=== PATIENT | male | born 1960 | race Caucasian/White ===

== ENCOUNTER 2020-08-24 12:17 | Inpatient (IN) | payer OTHER ==
[~2020-08-24] VITALS: Ht 180.3 cm; Wt 81.6 kg
[2020-08-24 12:19] VITALS: BP 172/96
[2020-08-24 12:33] LABS: ABSOLUTE BASOPHILS 0.1 thou/uL (0.0-0.2); ABSOLUTE EOSINOPHILS 0.3 thou/uL (0.0-0.7); ABSOLUTE LYMPHOCYTES 5.1 thou/uL (0.8-5.3); ABSOLUTE MONOCYTES 0.6 thou/uL (0.0-1.2); ABSOLUTE NEUTROPHILS 4.1 thou/uL (1.6-8.1); EOSINOPHILS 3.4 %; HEMATOCRIT 41.3 % (42.0-52.0); HEMOGLOBIN 14.6 gm/dL (14.0-18.0); LYMPHOCYTES 49.4 %; MCH 30.7 pg (26.0-34.0); MCHC 35.3 g/dL (28.0-37.0); MONOCYTES 5.9 %; MPV 8.1 fl. (7.2-11.1); NUCLEATED RBCS 0 /100WBC; PLATELET COUNT* 222 thou/uL (150-400); POLYS 40.3 %; RBC 4.75 mil/uL (4.50-6.00); RDW-CV 13.7 % (10.5-14.5); WBC 10.2 thou/uL (4.0-11.0)
[2020-08-24 12:42] LABS: CALCIUM 8.7 mg/dL (8.5-10.1); CREATININE 1.2 mg/dL (0.6-1.3); POTASSIUM 4.2 mmol/L (3.5-5.1)
[2020-08-24 12:46] LABS: ALBUMIN 4.2 g/dL (3.4-5.0); TOTAL BILIRUBIN 0.4 mg/dL (<0.1-1.0); TOTAL PROTEIN 7.6 g/dL (6.4-8.2)
[2020-08-24 16:00] VITALS: BP 149/77
[2020-08-24 16:10] VITALS: BP 140/86
[2020-08-24 19:17] VITALS: BP 141/82
[2020-08-24 20:20] VITALS: BP 132/75
[2020-08-25] VITALS (10 sets, daily range): BP systolic 106–130; BP diastolic 59–76
[2020-08-25 05:43] LABS: CHOLESTEROL 204 mg/dL (<200); HDL CHOLESTEROL 47 mg/dL (>40); LDL CHOLESTEROL 144 mg/dL (<100); SERUM ASSESSMENT Clear; TC:HDL 4.3 Ratio (Not establshd); TRIGLYCERIDE 67 mg/dL (<150); VLDL 13 mg/dL (<40)
--- NOTE | 2020-08-25 08:22 | CON ---
[address] [address] CONSULTATION Name: ELVIA SERRA Olga Room: [address] MElizabethRElizabeth#: [id number] Admission: 08/24/20 Attend Phys: Olga Munoz Discharge: Date of : 56 Report #: [id number] THIS REPORT FOR: cc: Ivory Valderrama Maggie M. DO Liston, Michael J. MD [facility] ~ DOC #: [id number] cc: DO Lincoln Spears MD DATE OF CONSULTATION: 08/24/2020 CARDIOLOGY CONSULTATION INDICATION: Chest pain. HISTORY OF PRESENT ILLNESS: The patient is a very pleasant 60-year-old gentleman with no prior history of coronary artery disease. He presents to the Emergency Room with midsternal chest discomfort described as a pressure sensation. The patient states the pain started while he was working on his house, climbing up and down a ladder, painting his soffits. The pain resolved on his way to the hospital, but then again recurred just prior to arriving to the hospital. The patient's initial troponin was unremarkable. EKG showed sinus rhythm without acute ST or T-wave abnormality. The patient's only significant risk factor is tobacco use. He quit smoking tobacco cigarettes some time ago, but continues to use vape tobacco. He had some diaphoresis, which was unusual for him. He denied any nausea or vomiting. There was no radiation of the discomfort. The patient reports that his father at the age of 52 from myocardial infarction. He is without other complaint at this time. PAST MEDICAL HISTORY: Significant for tobacco use. He denies any prior surgical history. He has no known drug allergies. 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 FAMILY HISTORY: Positive for coronary artery disease as outlined above. SOCIAL HISTORY: The patient does not drink alcohol. He smokes marijuana on occasion. He vapes and was a former tobacco cigarette smoker. PHYSICAL EXAMINATION: VITAL SIGNS: Stable. Blood pressure 149/89, pulse is 68 and regular. GENERAL: This is a pleasant gentleman who is in no distress. Mood and affect appropriate. HEENT: Extraocular muscles intact. Mucous membranes are moist. NECK: Shows no jugular venous distention. There [place] [address] CONSULTATION Name: ELVIA SERRA Room: [address] Billy#: [id number] Admission: 08/24/20 Attend Phys: Olga Munoz Discharge: Date of : 56 Report #: [id number] CHEST: Reveals clear lung lopez without wheezes or rales. CARDIAC: Reveals a regular rhythm. Normal S1 and S2. I do not appreciate gallop or murmur. ABDOMEN: Reveals normal bowel sounds. Abdomen is soft, nontender. EXTREMITIES: Shows no edema. Peripheral pulses 2+ and easily palpable. SKIN: Warm and dry. DIAGNOSTIC DATA: A 12-lead EKG shows sinus rhythm with no acute ST or T-wave abnormality. LABORATORY DATA: Reviewed. Electrolytes within normal limits. Troponin on arrival less than 0.06. Serial troponins pending. Chest x-ray shows no acute cardiopulmonary abnormality. IMPRESSION AND RECOMMENDATIONS: 1. Chest pain. Recommend completing rule out with serial enzymes. Cardiac risk factors include tobacco use and family history of premature atherosclerotic coronary artery disease. At this point in time, if he does rule out, I would be in favor of noninvasive stress testing. This will be ordered at this time. If he does rule in for myocardial infarction, we will change to invasive evaluation. 2. Tobacco use. Cessation advised. 3. Active ectodermal dysplasia, chronic in nature and stable. 4. Borderline hypertension. We will follow clinically at this time and start medications if necessary. Lincoln Morris MD MJL/SARAH <ELECTRONICALLY SIGNED> By: Lincoln Morris MD, [facility] 08/25/20 0822 1409 1724[facility] Morris MD, [facility] /nt
--- NOTE | 2020-08-25 09:48 | EKG ---
[place] [address] ELECTROCARDIOGRAM REPORT Name: MARYSEELVIA D Room: [address]R.#: [id number] Admission: 08/24/20 Attend Phys: Patrick Brock Discharge: Date of : 56 Date of Service: 08/24/20 1220 Report #: [id number] THIS REPORT FOR: //name// [facility] ED Test Date: 2020-08-24 Test Time: 12:20:43 Pat Name: ELVIA SERRA Department: Room: [facility] Gender: M [employer]: CONNER : 1960 Requested By: Kobi Villegas Order Number: [id number] MD: Espinoza Ramirez Measurements Intervals [place] Rate: 75 P: 68 PA: 159 QRS: 83 QRSD: 102 T: 64 QT: 394 QTc: 441 Interpretive Statements Sinus rhythm Borderline right axis deviation No previous ECG available for comparison Electronically Signed On 08-25-2020 9:48:42 CDT by Espinoza Ramirez [email or web address] <ELECTRONICALLY SIGNED> By: Espinoza Ramirez MD, [facility] 08/25/20 0948 1220 1220 Espinoza Ramirez MD, [facility] /EPI
--- NOTE | 2020-08-25 13:39 | EKG ---
[place] [address] ELECTROCARDIOGRAM REPORT Name: ELVIA SERRA Room: [address] ADM IN M.R.#: [id number] Admission: 08/25/20 Attend Phys: Patrick Brock Discharge: Date of : 56 Date of Service: 08/25/20 1334 Report #: [id number] THIS REPORT FOR: //name// [facility] Test Date: 2020-08-25 Test Time: 13:34:05 Pat Name: ELVIA SERRA Department: Room: [address] Gender: M [employer]: : 1960 Requested By: Espinoza Ramirez Order Number: [id number] Reading MD: Espinoza Ramirez Measurements Intervals [place] Rate: 56 P: 50 SD: 145 QRS: 96 QRSD: 103 T: 69 QT: 439 QTc: 424 Interpretive Statements Sinus bradycardia Lateral infarct, old Probable anteroseptal infarct, recent Compared to ECG 08/24/2020 12:20:43 Myocardial infarct finding now present Electronically Signed On 08-25-2020 13:39:27 CDT by Espinoza Ramirez [email or web address] <ELECTRONICALLY SIGNED> By: Espinoza Ramirez MD, [facility] 08/25/20 1339 1334 1334 Espinoza Ramirez MD, [facility] /EPI
[2020-08-26 00:24] VITALS: BP 115/64
[2020-08-26 04:00] VITALS: BP 131/52
[2020-08-26 06:14] LABS: HEMATOCRIT 39.5 % (42.0-52.0); HEMOGLOBIN 13.7 gm/dL (14.0-18.0); MCH 30.2 pg (26.0-34.0); MCHC 34.8 g/dL (28.0-37.0); MCV 86.8 fL (80.0-100.0); MPV 8.8 fl. (7.2-11.1); RBC 4.55 mil/uL (4.50-6.00); RDW-CV 13.7 % (10.5-14.5); WBC 12.1 thou/uL (4.0-11.0)
[2020-08-26 06:26] LABS: CALCIUM 8.1 mg/dL (8.5-10.1); CREATININE 0.9 mg/dL (0.6-1.3); POTASSIUM 3.6 mmol/L (3.5-5.1)
[2020-08-26 08:00] VITALS: BP 115/78
[2020-08-26] MEDS ORDERED: LIPITOR 40 MG T40 M1 PO (09:12)
[2020-08-26] MEDS ORDERED: LISINOPRIL20 MG PO (09:12)
[2020-08-26] MEDS ORDERED: EFFIENT10 MG PO (09:12)
[2020-08-26] MEDS ORDERED: BAYER CHEWABLE81 MG PO (09:12)
[2020-08-26] MEDS ORDERED: COREG6.25 MG PO (09:12)
--- NOTE | 2020-08-26 09:29 | EKG ---
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1960 Requested By: Espinoza Ramirez Order Number: [id number] Reading MD: Espinoza Ramirez Measurements Intervals [place] Rate: 74 P: 64 NC: 147 QRS: 97 QRSD: 105 T: 78 QT: 395 QTc: 439 Interpretive Statements Sinus rhythm Probable anterolateral infarct, acute Baseline wander in lead(s) III Compared to ECG 08/25/2020 13:34:05 Sinus bradycardia no longer present Myocardial infarct finding still present Electronically Signed On 08-26-2020 9:29:19 CDT by Espinoza Ramirez [email or web address] <ELECTRONICALLY SIGNED> By: Espinoza Ramirez MD, [facility] 08/26/2029 5 5 Espinoza Ramirez MD, FAC /EPI
[2020-08-26 12:39] VITALS: BP 129/69
[2020-08-26 12:57] VITALS: BP 121/79
--- NOTE | 2020-08-26 13:03 | CARD ---
[facility] [address] [place] [address] CARDIAC CATH REPORT Name: ELVIA SERRA Room: [facility] IN ..#: [id number] Admission: 08/25/20 Attend Phys: Olga Munoz Discharge: Date of : 56 Report #: [id number] THIS REPORT FOR: cc: Ivory Valderrama Maggie M. DO Blick, David R. MD [facility] ~ APPROVED REPORT Study performed: 08/25/2020 11:17:03 Patient Details Patient Status: In-Patient Room #: 209 The patient is a 60 year-old male Event Personnel Lincoln Morris Order Clerk, Espinoza Ramirez Category Consultant, Marlena Randhawa RN Monitor, Andres Muro Scrub, Bhavna Phillips RN Odd Piece Checker Procedures Performed Art Access - R femoral artery* Left Heart Cath w/or w/o Coronaries SUKHDEV Revasc AMI Total/Sub Single LAD; Hemostasis w/ Angioseal Indication Non-STEMI , Chest pain Risk Factors Hypercholesterolemia Admission/Lab Medications/Medications given during procedure Glycoprotein IllbIlla Inhibitors, Heparin Unfract. Procedure Narrative The patient was brought electively to the Cardiac Catheterization Laboratory and was prepped and draped in a sterile manner. The right femoral was infiltrated with 2% Lidocaine subcutaneous anesthesia. A [place] 6 FR sheath was inserted into the right femoral artery. Coronary angiography was performed using coronary diagnostic catheters. The right coronary system was accessed and visualized with a Diagnostic 6FR JR4 catheter. The left coronary system was accessed and visualized with a Diagnostic 6FR JL4 catheter. The left ventricle was accessed and visualized with a Diagnostic [place] [address] CARDIAC CATH REPORT Name: ELVIA SERRA Room: [address]#: [id number] Admission: 08/25/20 Attend Phys: Olga Munoz Discharge: Date of : 56 Report #: [id number] ventricular/Aortic Valve gradient assessed via catheter pullback. Left ventriculogram was performed in REED projection. Closure device was deployed with a 6 Fr Angioseal STS. The patient tolerated the procedure well and there were no complications associated with the procedure. There was no hematoma. Intraoperative Conscious Sedation Sedation start time: 11:52 Case end Time: 12:48 Fentanyl 75 mcg Versed 2 mg Fluoro Time: 6.6 minutes Dose: DAP 90482 cGycm2 1485 mGy Contrast Type and Amount: Visipaque 230 ml Coronary Angiography The patient's coronary anatomy is right dominant. Diagnostic Cath Left Main The left main coronary artery is normal and bifurcates into a left anterior sitting and circumflex coronary artery. LAD The left anterior descending coronary artery is totally occluded in its midportion. Diagonal 1 A small first diagonal branch appears to be free of significant disease. Circumflex The circumflex coronary artery appears to be free of significant disease in its proximal mid and distal portion. OM1 A moderate-sized first obtuse marginal branch is normal. OM2 A moderate sized second obtuse marginal branch is normal. OM3 A moderate size third obtuse marginal branch is normal. Right Coronary The right coronary artery is a large dominant vessel with approximately 30% mid vessel narrowing. The remainder the vessel is free of significant disease. R PDA A large PDA appears normal. RPLV A moderate-sized branch posterior lateral branch appears normal. Left Ventriculography The left ventricle is normal in size with Decreased contractility. The left ventricular ejection fraction is estimated to be 40%. Left ventricular wall motion abnormalities are present. There is severe hypokinesis of the mid to apical anterior wall [place] [address] CARDIAC CATH REPORT Name: ELVIA SERRA Room: [address] IN [facility]#: [id number] Admission: 08/25/20 Attend Phys: Olga Munoz Discharge: Date of : 56 Report #: [id number] The aortic pressure is 121/73 mmHg with a mean of 93 mmHg. The left ventricular pressure is 117/12 mmHg with a mean of mmHg. The left ventricular end diastolic pressure is 25 mmHg. There was no gradient across the aortic valve upon pullback. PCI Technique Lesion Anticoagulation was achieved with Heparin. bolus of IV aggrastat given Percutaneous coronary intervention was performed on the mid left anterior descending artery segment. The lesion stenosis prior to intervention was 100% with JARRELL 0 flow. A 6F XB LAD 4.0 Guide Catheter was used to engage the lm ostium. A IG: BMW 190cm Interventional Guidewire was used to cross the lesion. BALLOON DILATION A Balloon catheter Trek RX 2.5 X 8 was inserted and inflated up to 12.00atm for 12seconds. Repeat angiography revealed the following post-dilatation results: 40% stenosis. Additional Inflation: 12.00atm for 10seconds. Additional Inflation: 14.00atm for 13seconds. Additional inflation: 18 yusef for 11 seconds; Additional inflation: 16 yusef for 12 seconds; Additional inflation: 20 yusef for 9 seconds STENT DEPLOYMENT A drug-eluting stent [place] RX Stent 3.0X22mm was inserted and inflated up to 11.00atm for 13seconds. Repeat angiography revealed the following post-stent deployment results: 0% stenosis. Additional Inflation: 12.00atm for 8seconds. Additional Inflation: 15.00atm for 14seconds. Additional inflation: 16 yusef for 18 seconds Final angiography reveals 0 % stenosis with JARRELL 3 flow. Conclusion 1. Single-vessel coronary artery disease as outlined above with acute occlusion of the mid left anterior descending coronary artery. 2. Moderate left ventricular systolic dysfunction as outlined above with wall motion abnormalities in the territory of the LAD. 3. Moderately elevated left ventricular end-diastolic pressure consistent with acute on chronic diastolic heart failure. 4. successful placement of a drug eluting stent in the mid LAD Recommendations 1. Urgent percutaneous coronary intervention to the mid left anterior descending coronary artery. 2. Continue aggressive risk modification. [address] [place] [address] CARDIAC CATH REPORT Name: ELVIA SERRA Room: [address] IN M.R.#: [id number] Admission: 08/25/20 Attend Phys: Olga Munoz Discharge: Date of : 56 Report #: [id number] Medications Administered Prasugrel Diagnostic Cath Approved by: Lincoln Morris MD Date/Time: <ELECTRONICALLY SIGNED> By: Espinoza Ramirez MD, [facility]ACC 08/26/20 1303 1303 1303Daviolga Ramirez MD, FACC /INF
[2020-08-26 16:08] VITALS: BP 110/71
[2020-08-27 04:09] VITALS: BP 95/57
[2020-08-27 07:55] VITALS: BP 104/70
[2020-08-27 11:01] VITALS: BP 129/69
[2020-08-27 11:30] VITALS: BP 113/70
[2020-08-27 13:51] VITALS: BP 113/70
== END 2020-08-27 14:15 | disposition home or self-care (01) | DRG 246 ==
LOC: M.ERS 12:17 → M.TBA-ER 13:21 → M.2W 16:23
PROVIDERS: Emergency Medicine; Internal Medicine Cardiovascular Disease; ADMIT Internal Medicine; ATTEND Internal Medicine
PROC: 027034Z Dilation of Coronary Artery, One Artery with Drug-eluting Intraluminal Device, Percutaneous Approach (ICD-10-PCS; principal; 2020-08-25)
PROC: 3E033PZ Introduction of Platelet Inhibitor into Peripheral Vein, Percutaneous Approach (ICD-10-PCS; principal; 2020-08-25)
PROC: B211YZZ Fluoroscopy of Multiple Coronary Arteries using Other Contrast (ICD-10-PCS; principal; 2020-08-25)
PROC: B215YZZ Fluoroscopy of Left Heart using Other Contrast (ICD-10-PCS; principal; 2020-08-25)
PROC: 4A023N7 Measurement of Cardiac Sampling and Pressure, Left Heart, Percutaneous Approach (ICD-10-PCS; principal; 2020-08-25)
DX: I21.4 Non-ST elevation (NSTEMI) myocardial infarction (principal); I50.43 Acute on chronic combined systolic (congestive) and diastolic (congestive) heart failure; I25.110 Atherosclerotic heart disease of native coronary artery with unstable angina pectoris; I11.0 Hypertensive heart disease with heart failure; E78.5 Hyperlipidemia, unspecified; Z20.822 Contact with and (suspected) exposure to COVID-19; Q82.4 Ectodermal dysplasia (anhidrotic); Z87.891 Personal history of nicotine dependence; Z82.49 Family history of ischemic heart disease and other diseases of the circulatory system